=== PATIENT | male | born 1970 | race Two or more races ===

== ENCOUNTER 2022-05-22 10:13 | Inpatient (IN) | payer BC, OTHER ==
[~2022-05-22] VITALS: Ht 182.9 cm; Wt 110.5 kg
[2022-05-22] MEDS ORDERED: NITROGLYCERIN 0.4 MG SL TAB SL ONE (11:00)
[2022-05-22] MEDS ORDERED: ONDANSETRON HCL 4 MG/2 ML VIAL IV ONE (11:00)
[2022-05-22] MEDS ORDERED: MORPHINE SULFATE INJ 2 MG/ml SYRG IV ONE (11:00)
[2022-05-22 11:10] LABS: Basophils # (auto) 0 10 ^3/uL (0-0.2); Basophils % (auto) 0.2 % (0.0-2.0); Eosinophils # (auto) 0 10 ^3/uL (0-0.8); Eosinophils % (auto) 0.2 % (0.0-7.0); Lymphocytes # (auto) 1.4 10 ^3/uL (0.4-5.4); Lymphocytes % (auto) 30.3 % (10.0-50.0); Mean Corpuscular Hemoglobin 30.8 pg (28.0-32.0); Mean Corpuscular Hgb Conc. 34.3 g/dL (32.0-36.0); Mean Corpuscular Volume 89.7 fL (80.0-100.0); Monocytes # (auto) 0.4 10 ^3/uL (0-1.3); Monocytes % (auto) 9.5 % (0.0-12.0); Neutrophils # (auto) 2.7 10 ^3/uL (1.6-8.6); Neutrophils % (auto) 59.8 % (37.0-80.0); Nucleated Red Blood Cells % 0.1 %; Red Blood Cells 4.23 10^6/uL (4.5-5.90); Red Cell Distribution Width 14.5 % (11.8-14.3); White Blood Cell 4.5 10^3/uL (4.4-10.8)
[2022-05-22 11:24] LABS: Albumin 3.8 g/dL (3.4-5.0); Calcium 9.6 mg/dL (8.5-10.1); Potassium 3.9 mmol/L (3.5-5.1)
[2022-05-22 11:26] LABS: BUN/Creatinine Ratio 17.6 (10.0-20.0); Bilirubin, Total 0.3 mg/dL (0.2-1.0); Total Protein 7.6 g/dL (6.4-8.2)
[2022-05-22] MEDS ORDERED: ONDANSETRON HCL 4 MG/2 ML VIAL IV PRN (12:30)
[2022-05-22] MEDS ORDERED: ASPirin 325 MG TAB PO SCH (12:30)
[2022-05-22] MEDS ORDERED: ACETAMINOPHEN 325 MG TAB PO PRN (12:30)
[2022-05-22] MEDS ORDERED: DEXTROSE (50%) 50ML SYRG IV PRN (13:00)
[2022-05-22 13:09] LABS: INR 1.04 (0.9-1.15)
[2022-05-22] MEDS: NICOTINE 21MG/24 HR TOPICAL PATCH TD SCH (13:14)
[2022-05-22] MEDS: MORPHINE SULFATE 4 MG/ML SYR/VIAL IV PRN (16:10)
[2022-05-22] MEDS: ACCU-CHEK COMFORT CURVE STRIP VI SCH ×2 (17:11→22:27)
[2022-05-22] MEDS: InsuLIN REG 1unit/0.01ml Soln (100units/ml) SC SCH ×2 (17:44→22:00)
[2022-05-22] MEDS: NITROGLYCERIN 0.4 MG SL TAB SL PRN (20:19)
[2022-05-22] MEDS: METOPROLOL TARTRATE 50 MG TAB PO SCH (21:47)
[2022-05-22] MEDS: ATORVASTATIN 20 MG TAB PO SCH (21:48)
[2022-05-22] MEDS: ENOXAPARIN SOD 100 MG/1 ML SYRINGE SC SCH (21:48)
[2022-05-23] MEDS: hydrALAZINE HCL 20 MG/ML VL IV PRN ×2 (01:35→07:52)
[2022-05-23] MEDS: MORPHINE SULFATE 4 MG/ML SYR/VIAL IV PRN ×5 (05:21→22:41)
[2022-05-23 06:11] LABS: Basophils # (auto) 0 10 ^3/uL (0-0.2); Basophils % (auto) 0.5 % (0.0-2.0); Eosinophils # (auto) 0 10 ^3/uL (0-0.8); Eosinophils % (auto) 0.2 % (0.0-7.0); Hematocrit 36.6 % (41.0-53.0); Hemoglobin 12.7 g/dL (13.5-17.5); Lymphocytes # (auto) 1.2 10 ^3/uL (0.4-5.4); Mean Corpuscular Hemoglobin 30.6 pg (28.0-32.0); Mean Corpuscular Hgb Conc. 34.7 g/dL (32.0-36.0); Mean Corpuscular Volume 88.2 fL (80.0-100.0); Monocytes # (auto) 0.4 10 ^3/uL (0-1.3); Monocytes % (auto) 7.7 % (0.0-12.0); Neutrophils % (auto) 64.6 % (37.0-80.0); Nucleated Red Blood Cells % 0.1 %; Red Blood Cells 4.16 10^6/uL (4.5-5.90); Red Cell Distribution Width 14.5 % (11.8-14.3); White Blood Cell 4.6 10^3/uL (4.4-10.8)
[2022-05-23] MEDS: InsuLIN REG 1unit/0.01ml Soln (100units/ml) SC SCH ×4 (07:00→22:00)
[2022-05-23] MEDS: ACCU-CHEK COMFORT CURVE STRIP VI SCH ×4 (07:12→22:00)
[2022-05-23] MEDS ORDERED: IOHEXOL 350 MG/ML 100ML IJ ONE (07:54)
[2022-05-23] MEDS ORDERED: ISOSORBIDE MONONITRATE ER 60 MG TAB PO ONE ×2 (10:15)
[2022-05-23] MEDS: PANTOPRAZOLE 40 MG/10 ML VIAL INJ IV SCH (10:29)
[2022-05-23] MEDS: DOCUSATE SOD 100 MG CAP PO SCH (10:29)
[2022-05-23] MEDS: ASPirin 81 mg TAB PO SCH (10:29)
[2022-05-23] MEDS: METOPROLOL TARTRATE 50 MG TAB PO SCH ×2 (10:30→22:45)
[2022-05-23] MEDS: ENOXAPARIN SOD 100 MG/1 ML SYRINGE SC SCH ×2 (10:31→22:22)
[2022-05-23] MEDS: NICOTINE 21MG/24 HR TOPICAL PATCH TD SCH (10:31)
[2022-05-23] MEDS: NITROGLYCERIN 0.4 MG SL TAB SL PRN (20:54)
[2022-05-23] MEDS: TICAGRELOR 90 MG TAB PO SCH (22:22)
[2022-05-23] MEDS: ATORVASTATIN 20 MG TAB PO SCH (22:45)
[2022-05-23] MEDS ORDERED: TICA90TA PO (22:54)
[2022-05-23] MEDS ORDERED: RANO10003 PO (22:54)
[2022-05-23] MEDS ORDERED: ATOR-47 PO (22:54)
[2022-05-23] MEDS ORDERED: OMEP-337 PO (22:54)
[2022-05-23] MEDS ORDERED: FENO145T27 PO (22:54)
[2022-05-23] MEDS ORDERED: ISO60SRT PO (22:54)
[2022-05-23] MEDS ORDERED: MET25T PO (22:54)
[2022-05-23] MEDS ORDERED: TRAZ1TAB12 PO (22:54)
[2022-05-24] MEDS: MORPHINE SULFATE 4 MG/ML SYR/VIAL IV PRN ×3 (02:46→10:13)
[2022-05-24] MEDS: ACCU-CHEK COMFORT CURVE STRIP VI SCH ×2 (06:06→11:30)
[2022-05-24] MEDS: InsuLIN REG 1unit/0.01ml Soln (100units/ml) SC SCH ×2 (06:06→11:30)
[2022-05-24] MEDS: PANTOPRAZOLE 40 MG/10 ML VIAL INJ IV SCH (08:11)
[2022-05-24] MEDS: DOCUSATE SOD 100 MG CAP PO SCH ×2 (08:14→08:23)
[2022-05-24] MEDS: ASPirin 81 mg TAB PO SCH (08:14)
[2022-05-24] MEDS: METOPROLOL TARTRATE 50 MG TAB PO SCH (08:14)
[2022-05-24] MEDS: TICAGRELOR 90 MG TAB PO SCH (08:15)
[2022-05-24] MEDS: ENOXAPARIN SOD 100 MG/1 ML SYRINGE SC SCH (08:15)
[2022-05-24] MEDS: NICOTINE 21MG/24 HR TOPICAL PATCH TD SCH (08:22)
[2022-05-24 08:30] VITALS: BP 154/93
[2022-05-24 09:00] VITALS: BP 154/93
[2022-05-24] MEDS ORDERED: ISOSORBIDE MONONITRATE ER 60 MG TAB PO SCH (10:00)
[2022-05-24] MEDS: hydrALAZINE HCL 20 MG/ML VL IV PRN (11:30)
[2022-05-24 12:44] VITALS: BP 150/96
== END 2022-05-24 14:25 | disposition home or self-care (01) | DRG 305 ==
LOC: ER 10:13 → OVERFLOW 12:34 → TELE-WESTW 05-23 21:45
PROVIDERS: ADMIT Nurse Practitioner Family; ATTEND Nurse Practitioner Family
DX: I16.0 Hypertensive urgency (principal); E87.0 Hyperosmolality and hypernatremia; I25.110 Atherosclerotic heart disease of native coronary artery with unstable angina pectoris; R07.89 Other chest pain; D64.9 Anemia, unspecified; F17.200 Nicotine dependence, unspecified, uncomplicated; I10 Essential (primary) hypertension; E78.5 Hyperlipidemia, unspecified; E11.9 Type 2 diabetes mellitus without complications; E78.00 Pure hypercholesterolemia, unspecified; I25.2 Old myocardial infarction; Z95.1 Presence of aortocoronary bypass graft; Z95.5 Presence of coronary angioplasty implant and graft; Z71.6 Tobacco abuse counseling; Z90.49 Acquired absence of other specified parts of digestive tract
CPT/HCPCS: 36415; 71046; 71275; 80053; 82962; 83036; 83735; 84484; 85025; 85379; 85610; 93005; 93306; 96374; 96375; C9113; G0378; J2405